=== PATIENT | male | born 1965 | race Two or more races ===

== ENCOUNTER 2023-10-12 18:35 | Inpatient (IN) | payer OTHER ==
[2023-10-12 19:34] VITALS: BMI 26.3
[2023-10-12] MEDS ORDERED: ACETAMINOPHEN 325 MG TABLET (FP) PO PRN (20:16)
[2023-10-12] MEDS ORDERED: DICYCLOMINE HCL 10 MG CAPSULE PO PRN (20:16)
[2023-10-12] MEDS ORDERED: BENZONATATE 200 MG CAPSULE PO PRN (20:16)
[2023-10-12] MEDS ORDERED: guaiFENesin 600 MG TABLET.ER (FP) PO PRN (20:16)
[2023-10-12] MEDS ORDERED: LOPERAMIDE HCL 2 MG CAPSULE PO PRN (20:16)
[2023-10-12] MEDS ORDERED: BENZOCAINE/MENTHOL (CHLORASEPTIC ) LOZENGE MM PRN (20:16)
[2023-10-12] MEDS ORDERED: ONDANSETRON *ODT* 4 MG TABLET SL PRN (20:16)
[2023-10-12] MEDS ORDERED: BISMUTH SUBSALICYLATE 524 MG/30 ML PO PRN (20:16)
[2023-10-12] MEDS ORDERED: IBUPROFEN 600 MG TABLET (FP) PO PRN (20:16)
[2023-10-12] MEDS ORDERED: IBUPROFEN 400 MG TABLET (FP) PO PRN (20:16)
[2023-10-12] MEDS ORDERED: MAGNESIUM HYDROX 2400MG/30ML ORAL SUSPENSION 30 ML CUP PO PRN (20:16)
[2023-10-12] MEDS ORDERED: POLYETHYLENE GLYCOL (HEALTHYLAX) 3350 17 GM PACKET PO PRN (20:16)
[2023-10-12] MEDS ORDERED: MAG HYDROX/AL HYDROX/SIMETH 30 ML UNIT-DOSE CUP PO PRN (20:16)
[2023-10-12] MEDS ORDERED: NICOTINE POLACRILEX 2 MG GUM BUC PRN (20:26)
[2023-10-13] MEDS: MELATONIN 5 MG TABLETS PO SCH (01:46)
[2023-10-13] MEDS: THIAMINE 100 MG TABLET PO SCH (01:46)
[2023-10-13] MEDS: hydrOXYzine PAMOATE 25 MG CAPSULE (FP) PO PRN (05:29)
[2023-10-13] MEDS: METHOCARBAMOL 500 MG TABLET PO PRN (05:29)
[2023-10-13] MEDS: PRENATAL VITAMINS W/ FOLIC ACID TABLET (FP) PO SCH (10:11)
[2023-10-13] MEDS ORDERED: chlordiazePOXIDE HCL 25 MG CAPSULE PO PRN (10:16)
[2023-10-13] MEDS: chlordiazePOXIDE HCL 25 MG CAPSULE PO SCH (11:17)
[2023-10-13 11:44] LABS: HEMATOCRIT 42.3 % (35.4-49); HEMOGLOBIN 14.2 GM/dL (11.7-16.9); MCH 29.7 pg (25.7-33.7); MCHC 33.5 g/dl (32.0-35.9); MEAN CELL VOLUME 88.7 fl (80-96); PLATELET COUNT 276 10^3/uL (134-434); RBC 4.77 M/mm3 (4.00-5.60); RDW 14.6 % (11.9-15.9); WHITE BLOOD COUNT 6.9 K/mm3 (4.0-10.0)
[2023-10-13 11:52] LABS: POTASSIUM 3.8 mmol/L (3.5-5.1)
[2023-10-13 11:55] LABS: ALBUMIN 3.6 g/dl (3.4-5.0); BLOOD UREA NITROGEN 5.4 mg/dL (7-18)
[2023-10-13 11:56] LABS: CALCIUM 8.1 mg/dL (8.5-10.1)
[2023-10-13 11:58] LABS: CREATININE 0.6 mg/dL (0.55-1.3)
[2023-10-13 12:03] LABS: BILIRUBIN,TOTAL 0.8 mg/dL (0.2-1)
[2023-10-15] MEDS: chlordiazePOXIDE HCL 25 MG CAPSULE PO SCH (05:26)
[2023-10-16] MEDS ORDERED: chlordiazePOXIDE HCL 10 MG CAPSULE PO PRN
[2023-10-16] MEDS: chlordiazePOXIDE HCL 10 MG CAPSULE PO SCH (05:13)
[2023-10-16] MEDS: NALTREXONE HCL 50 MG TABLET PO SCH ×2 (12:45→13:36)
[2023-10-17] MEDS: chlordiazePOXIDE HCL 10 MG CAPSULE PO SCH (05:35)
[2023-10-18] MEDS: chlordiazePOXIDE HCL 10 MG CAPSULE PO ONE (05:05)
[2023-10-18 05:41] VITALS: BP 114/70; PULSE 85; RESP 16; TEMP 98
== END 2023-10-18 09:10 | disposition home or self-care (01) | DRG 775 ==
LOC: YASAS 18:35 → Y3N 21:59
PROVIDERS: ADMIT Allergy & Immunology; ATTEND Surgery
PROC: HZ2ZZZZ Detoxification Services for Substance Abuse Treatment (ICD-10-PCS; principal; 2023-10-12)
DX: F10.230 Alcohol dependence with withdrawal, uncomplicated (principal); F17.210 Nicotine dependence, cigarettes, uncomplicated; F32.A Depression, unspecified; R74.8 Abnormal levels of other serum enzymes; Z56.0 Unemployment, unspecified; Z59.02 Unsheltered homelessness
CPT/HCPCS: 36415; 80053; 80305; 85027; 86780

== ENCOUNTER 2023-10-29 21:15 | Inpatient (IN) | payer OTHER ==
[2023-10-29] MEDS ORDERED: MAGNESIUM HYDROX 2400MG/30ML ORAL SUSPENSION 30 ML CUP PO PRN (22:01)
[2023-10-29] MEDS ORDERED: METHOCARBAMOL 500 MG TABLET PO PRN (22:01)
[2023-10-29] MEDS ORDERED: LOPERAMIDE HCL 2 MG CAPSULE PO PRN (22:01)
[2023-10-29] MEDS ORDERED: POLYETHYLENE GLYCOL (HEALTHYLAX) 3350 17 GM PACKET PO PRN (22:01)
[2023-10-29] MEDS ORDERED: ACETAMINOPHEN 325 MG TABLET (FP) PO PRN (22:01)
[2023-10-29] MEDS ORDERED: DICYCLOMINE HCL 10 MG CAPSULE PO PRN (22:01)
[2023-10-29] MEDS ORDERED: BISMUTH SUBSALICYLATE 524 MG/30 ML PO PRN (22:01)
[2023-10-29] MEDS ORDERED: NALOXONE HCL 0.4 MG/ML VIAL IM PRN (22:01)
[2023-10-29] MEDS ORDERED: ONDANSETRON *ODT* 4 MG TABLET SL PRN (22:01)
[2023-10-29] MEDS ORDERED: BENZOCAINE/MENTHOL (CHLORASEPTIC ) LOZENGE MM PRN (22:01)
[2023-10-29] MEDS ORDERED: NALOXONE (NARCAN) HCL 4 MG/0.1 ML SPRAY NS PRN (22:01)
[2023-10-29] MEDS ORDERED: IBUPROFEN 400 MG TABLET (FP) PO PRN (22:01)
[2023-10-29] MEDS ORDERED: guaiFENesin 600 MG TABLET.ER (FP) PO PRN (22:01)
[2023-10-29] MEDS ORDERED: hydrOXYzine PAMOATE 25 MG CAPSULE (FP) PO PRN (22:01)
[2023-10-29] MEDS ORDERED: BENZONATATE 200 MG CAPSULE PO PRN (22:01)
[2023-10-29] MEDS ORDERED: NICOTINE POLACRILEX 4 MG GUM BUC PRN (22:01)
[2023-10-29] MEDS ORDERED: MAG HYDROX/AL HYDROX/SIMETH 30 ML UNIT-DOSE CUP PO PRN (22:01)
[2023-10-29] MEDS ORDERED: IBUPROFEN 600 MG TABLET (FP) PO PRN (22:01)
[2023-10-30] MEDS ORDERED: chlordiazePOXIDE HCL 25 MG CAPSULE PO PRN (09:25)
[2023-10-30] MEDS: PRENATAL VITAMINS W/ FOLIC ACID TABLET (FP) PO SCH (09:35)
[2023-10-30] MEDS: NICOTINE 21 MG/24 HOURS TOPICAL PATCH TD SCH (09:35)
[2023-10-30] MEDS: chlordiazePOXIDE HCL 25 MG CAPSULE PO SCH (10:55)
[2023-10-30 12:05] LABS: CHLORIDE 101 mmol/L (98-107); HEMATOCRIT 41.8 % (35.4-49); HEMOGLOBIN 14.3 GM/dL (11.7-16.9); MCH 29.5 pg (25.7-33.7); MCHC 34.2 g/dl (32.0-35.9); MEAN CELL VOLUME 86.3 fl (80-96); MEAN PLT VOLUME 8.8 fl (7.5-11.1); PLATELET COUNT 122 10^3/uL (134-434); POTASSIUM 3.3 mmol/L (3.5-5.1); RBC 4.84 M/mm3 (4.00-5.60); RDW 16.5 % (11.9-15.9); SODIUM 139 mmol/L (136-145); WHITE BLOOD COUNT 7.1 K/mm3 (4.0-10.0)
[2023-10-30 12:11] LABS: ALBUMIN 3.5 g/dl (3.4-5.0); ANION GAP 8 mmol/L (4-13); BLOOD UREA NITROGEN 6.4 mg/dL (7-18); CALCIUM 7.4 mg/dL (8.5-10.1); CO2 30 mmol/L (21-32); GLUCOSE,RANDOM 91 mg/dL (74-106)
[2023-10-30 12:14] LABS: CREATININE 0.5 mg/dL (0.55-1.3); SGOT/AST 101 U/L (15-37)
[2023-10-30 12:16] LABS: SGPT/ALT 58 U/L (13-61)
[2023-10-30 12:17] LABS: ALK PHOS 193 U/L (45-117)
[2023-10-30 12:18] LABS: BILIRUBIN,TOTAL 1.5 mg/dL (0.2-1)
[2023-10-30] MEDS: POTASSIUM CHLORIDE ORAL LIQUID 20 MEQ/15 ML PO ONE (16:04)
[2023-10-30] MEDS: POTASSIUM CHLORIDE ORAL LIQUID 20 MEQ/15 ML PO SCH (22:13)
[2023-10-30] MEDS: THIAMINE 100 MG TABLET PO SCH (22:14)
[2023-10-30] MEDS: MELATONIN 5 MG TABLETS PO SCH (22:14)
[2023-10-31 06:28] VITALS: PULSE 80
[2023-10-31 08:51] VITALS: BP 131/79; RESP 18; TEMP 98
[2023-11-01] MEDS ORDERED: chlordiazePOXIDE HCL 25 MG CAPSULE PO SCH (05:00)
[2023-11-02] MEDS ORDERED: chlordiazePOXIDE HCL 10 MG CAPSULE PO PRN
[2023-11-02] MEDS ORDERED: chlordiazePOXIDE HCL 10 MG CAPSULE PO SCH (05:00)
[2023-11-03] MEDS ORDERED: chlordiazePOXIDE HCL 10 MG CAPSULE PO SCH (05:00)
[2023-11-04] MEDS ORDERED: chlordiazePOXIDE HCL 10 MG CAPSULE PO ONE (05:00)
== END 2023-10-31 10:30 | disposition home or self-care (01) | DRG 775 ==
LOC: YASAS 21:15 → Y6N 22:26
PROVIDERS: ADMIT Allergy & Immunology; ATTEND Surgery
PROC: HZ2ZZZZ Detoxification Services for Substance Abuse Treatment (ICD-10-PCS; principal; 2023-10-29)
DX: F10.230 Alcohol dependence with withdrawal, uncomplicated (principal); F10.220 Alcohol dependence with intoxication, uncomplicated; F17.210 Nicotine dependence, cigarettes, uncomplicated; E87.6 Hypokalemia; Z86.79 Personal history of other diseases of the circulatory system; Z87.19 Personal history of other diseases of the digestive system; Z59.00 Homelessness unspecified
CPT/HCPCS: 36415; 80053; 80305; 80307; 82247; 84132; 84450; 85027; 86780

== ENCOUNTER 2023-11-09 20:14 | Inpatient (IN) | payer OTHER ==
[2023-11-09 20:32] VITALS: BMI 27.9
[2023-11-09] MEDS ORDERED: IBUPROFEN 400 MG TABLET (FP) PO PRN (20:47)
[2023-11-09] MEDS ORDERED: ACETAMINOPHEN 325 MG TABLET (FP) PO PRN (20:47)
[2023-11-09] MEDS ORDERED: MAGNESIUM HYDROX 2400MG/30ML ORAL SUSPENSION 30 ML CUP PO PRN (20:47)
[2023-11-09] MEDS ORDERED: BENZONATATE 200 MG CAPSULE PO PRN (20:47)
[2023-11-09] MEDS ORDERED: BISMUTH SUBSALICYLATE 524 MG/30 ML PO PRN (20:47)
[2023-11-09] MEDS ORDERED: guaiFENesin 600 MG TABLET.ER (FP) PO PRN (20:47)
[2023-11-09] MEDS ORDERED: NICOTINE POLACRILEX 2 MG LOZENGE BC PRN (20:47)
[2023-11-09] MEDS ORDERED: MAG HYDROX/AL HYDROX/SIMETH 30 ML UNIT-DOSE CUP PO PRN (20:47)
[2023-11-09] MEDS ORDERED: LOPERAMIDE HCL 2 MG CAPSULE PO PRN (20:47)
[2023-11-09] MEDS ORDERED: DICYCLOMINE HCL 10 MG CAPSULE PO PRN (20:47)
[2023-11-09] MEDS ORDERED: ONDANSETRON *ODT* 4 MG TABLET SL PRN (20:47)
[2023-11-09] MEDS ORDERED: BENZOCAINE/MENTHOL (CHLORASEPTIC ) LOZENGE MM PRN (20:47)
[2023-11-09] MEDS ORDERED: POLYETHYLENE GLYCOL (HEALTHYLAX) 3350 17 GM PACKET PO PRN (20:47)
[2023-11-09] MEDS ORDERED: IBUPROFEN 600 MG TABLET (FP) PO PRN (20:47)
[2023-11-09] MEDS ORDERED: NICOTINE POLACRILEX 2 MG GUM BUC PRN (20:47)
[2023-11-09] MEDS: hydrOXYzine PAMOATE 25 MG CAPSULE (FP) PO PRN (22:24)
[2023-11-09] MEDS: MELATONIN 5 MG TABLETS PO SCH (22:24)
[2023-11-09] MEDS: METHOCARBAMOL 500 MG TABLET PO PRN (22:24)
[2023-11-09] MEDS: THIAMINE 100 MG TABLET PO SCH (22:24)
[2023-11-10] MEDS: PRENATAL VITAMINS W/ FOLIC ACID TABLET (FP) PO SCH (10:11)
[2023-11-10] MEDS: diazePAM 5 MG TABLET PO SCH (17:25)
[2023-11-12] MEDS: diazePAM 5 MG TABLET PO SCH (05:36)
[2023-11-12] MEDS: diazePAM 5 MG TABLET PO PRN (10:19)
[2023-11-13] MEDS: diazePAM 5 MG TABLET PO SCH (06:06)
[2023-11-13 09:23] VITALS: BP 118/71; PULSE 91; RESP 18; TEMP 97.3
[2023-11-14] MEDS ORDERED: diazePAM 5 MG TABLET PO ONE (06:00)
== END 2023-11-13 10:03 | disposition home or self-care (01) | DRG 775 ==
LOC: YASAS 20:14 → Y6N 20:52
PROVIDERS: ADMIT Allergy & Immunology; ATTEND Surgery
PROC: HZ2ZZZZ Detoxification Services for Substance Abuse Treatment (ICD-10-PCS; principal; 2023-11-09)
DX: F10.230 Alcohol dependence with withdrawal, uncomplicated (principal); F17.210 Nicotine dependence, cigarettes, uncomplicated; F32.A Depression, unspecified; Z86.79 Personal history of other diseases of the circulatory system; Z87.19 Personal history of other diseases of the digestive system; Z56.0 Unemployment, unspecified; Z59.02 Unsheltered homelessness
CPT/HCPCS: 80305